=== PATIENT | female | born 1945 | race Caucasian/White ===

== ENCOUNTER 2018-09-21 08:06 | Inpatient (IN) | payer MEDICARE, OTHER | END 2018-09-24 15:10 | disposition home or self-care (01) | LOC: PAS IN 08:06 → ORTHO 4S 14:30 | PROC: 0SR90J9 Replacement of Right Hip Joint with Synthetic Substitute, Cemented, Open Approach (ICD-10-PCS; principal; 2018-09-21 09:43) | DX: M16.11 Unilateral primary osteoarthritis, right hip (principal); I10 Essential (primary) hypertension ==

== ENCOUNTER 2018-10-17 05:13 | Inpatient (IN) | payer MEDICARE, OTHER ==
[~2018-10-17] VITALS: Ht 167.6 cm; Wt 78.1 kg
[~2018-10-17 05:13] MED LIST: ACET-2119 PO; ASPI-1264 PO; CALC-1051 PO; FERR325T32 PO; IBUP-24 PO; LEVO25TA50 PO; LISI10TA4 PO; NORT10CA81 PO; OMEP-84 PO; PREG200C PO; ROSU10TA27 PO; TRAM50TA2 PO
[2018-10-17] MEDS ORDERED: ondansetron/PF 4mg/2ml inj IV ONE (05:45)
[2018-10-17] MEDS ORDERED: normal saline 1000ml 1,000 ML IV ONE (05:50)
[2018-10-17] MEDS ORDERED: morphine 4 MG/ML inj SYRINge IV ONE (05:50)
--- NOTE | 2018-10-17 05:51 | NUR ---
PT S/P HIP REPLACEMENT SURGERY FROM 2 WEEKS AGO. HX FIBROMYALGIA AND TAKES TRAMADOL DAILY , TOOK OXYCODONE FOR POST OP. NOW PRESENTS WITH DECREASED STOOL OUTPUT FROM ILEOSTOMY STARTING ON FRIDAY, ALSO NOTES RLQ PAIN. APPROX 300CC LIQUID STOOL NOTED IN OSTOMY, PT TOOK SENNA AND MIRALAX AT HOME.
[2018-10-17 06:03] LABS: BASOPHILS # (AUTO) 0.1 X10'3 (0-0.2); BASOPHILS % (AUTO) 0.5 % (0-1); EOSINOPHILS # (AUTO) 0.2 X10'3 (0-0.9); EOSINOPHILS % (AUTO) 1.5 % (0-6); HEMATOCRIT 37.7 % (35.0-45.0); HEMOGLOBIN 12.2 g/dl (12.0-16.0); LYMPHOCYTES # (AUTO) 1.3 X10'3 (1.1-4.8); LYMPHOCYTES % (AUTO) 10.9 % (21-51); MEAN CORPUSCULAR HEMOGLOBIN 27.7 PG (27.0-31.0); MEAN CORPUSCULAR HGB CONC 32.4 g/dL (33.0-36.5); MEAN CORPUSCULAR VOLUME 85.5 FL (78-98); MEAN PLATELET VOLUME 8.4 FL (7.4-10.4); MONOCYTES # (AUTO) 0.4 X10'3 (0-0.9); MONOCYTES % (AUTO) 3.8 % (2-12); NEUTROPHILS # (AUTO) 9.7 X10'3 (1.8-7.7); NEUTROPHILS % (AUTO) 83.3 % (42-75); PLATELET COUNT 358 X10'3 (140-440); RED BLOOD COUNT 4.41 X10'6 (4.20-5.60); RED CELL DISTRIBUTION WIDTH 15.9 % (11.5-14.5); WHITE BLOOD COUNT 11.6 X10'3 (4.5-11.0)
[2018-10-17 06:10] LABS: PROTHROMBIN TIME 10.1 SECONDS (9.0-12.0)
[2018-10-17 06:12] LABS: ALANINE AMINOTRANSFERASE 17 U/L (12-78); ALBUMIN 3.5 G/DL (3.4-5.0); ALBUMIN/GLOBULIN RATIO 0.9 (1.1-1.5); ALKALINE PHOSPHATASE 129 IU/L (46-116); ANION GAP 11 (8-16); ASPARTATE AMINO TRANSFERASE 21 U/L (10-37); BILIRUBIN,TOTAL 0.3 MG/DL (0.1-1.0); BLOOD UREA NITROGEN 13 MG/DL (7-18); BUN/CREATININE RATIO 19.1 (6.6-38.0); CALCIUM 9.7 MG/DL (8.5-10.1); CHLORIDE 107 MMOL/L (99-107); CREATININE 0.68 MG/DL (0.40-0.90); GLUCOSE 134 MG/DL (70-104); POTASSIUM 4.1 MMOL/L (3.5-5.1); SODIUM 140 MMOL/L (135-145); TOTAL CARBON DIOXIDE 21.9 MMOL/L (24-32); TOTAL PROTEIN 7.6 G/DL (6.4-8.2); eGFR 85 ML/MIN
--- NOTE | 2018-10-17 06:46 | NUR ---
pt does not know her med list. states she can get it from her pharmacy when they open today. informed her we will need this info once they open today.
[2018-10-17 06:51] LABS: CLARITY,URINE CLEAR (Clear); COLOR,URINE YELLOW (Yellow); GLUCOSE, URINE NEGATIVE (Neg); KETONES,URINE NEGATIVE (Neg); LEUKOCYTE ESTERASE ,URINE NEGATIVE (Neg); NITRITES, URINE NEGATIVE (Neg); OCCULT BLOOD,URINE TRACE-INTACT (Neg); PH,URINE 5.5 (4.8-8.0); PROTEIN,URINE NEGATIVE (Neg); UA COLLECTION TYPE CLN CATCH MIDSTREAM; UROBILINOGEN,URINE 0.2 E.U/dL (0.2-1.0)
[2018-10-17 06:57] LABS: BACTERIA,URINE FEW /HPF (Neg); MUCUS STRANDS MODERATE /LPF (Neg); SQUAMOUS EPITHELIAL CELL,UR MODERATE /LPF (FEW)
--- NOTE | 2018-10-17 07:44 | NUR ---
FAXED MEDICAL RECORDS RELEASE FORM TO [facility]. NOW WAITING FOR PT INFO TO BE FAXED OVER.
[2018-10-17] MEDS ORDERED: magnesium Cl slow-release 64mg tablet PO PRN (07:45)
[2018-10-17] MEDS ORDERED: magnesium 4gm in 100ml NS 100 ML IV PRN (07:45)
[2018-10-17] MEDS ORDERED: potassium Cl 40MEQ/NS 500ml 500 ML IV PRN ×2 (07:45)
[2018-10-17] MEDS ORDERED: magnesium 2GM in 50ml NS 50 ML IV PRN (07:45)
[2018-10-17] MEDS ORDERED: potassium Cl 20 mEq SR tablet PO PRN (07:45)
[2018-10-17] MEDS: K and/or MAG REPLACEMENT MC SCH (08:00)
[2018-10-17] MEDS ORDERED: ASCO500C15 PO (08:02)
[2018-10-17] MEDS: normal saline 1000ml 1,000 ML IV SCH ×2 (08:09→17:57)
[2018-10-17] MEDS: morphine 2 MG/ML inj. syringe IV PRN ×2 (08:15→19:41)
[2018-10-17 08:23] LABS: MAGNESIUM 1.9 MG/DL (1.5-2.4)
[2018-10-17] MEDS ORDERED: morphine 2 MG/ML inj. syringe IV ONE (09:25)
[2018-10-17 10:31] VITALS: BP 152/86
[2018-10-17] MEDS: ondansetron/PF 4mg/2ml inj IV PRN ×2 (11:40→19:00)
[2018-10-17 15:15] VITALS: BP 155/80
--- NOTE | 2018-10-17 17:07 | NUR ---
[facility] documentation: I have reviewed and agree with interventions, assessments performed and documented by MARIMAR Omer. [facility] Medication Administration: For this medication-pass time frame, medication were reviewed, dispensed, administered and documented per hospital policy by MARIMAR Omer.
--- NOTE | 2018-10-17 18:07 | NUR ---
Problems reprioritized. Patient report given, questions answered & plan of care reviewed with MARIMAR PARISH.
--- NOTE | 2018-10-17 18:15 | NUR ---
Patient in room PCU 3026. I have received report from Josefina MINAYA and had the opportunity to ask questions and assume patient care.
[2018-10-17 18:30] VITALS: BP 170/73
[2018-10-17] MEDS: diatr meglu/diatrizoate 30ml oral sol.-(3 dose) bottle PO SCH (21:32)
[2018-10-17 22:30] VITALS: BP 157/78
[2018-10-18] MEDS: ondansetron/PF 4mg/2ml inj IV PRN ×3 (01:11→17:03)
[2018-10-18] MEDS: morphine 2 MG/ML inj. syringe IV PRN ×5 (02:05→22:07)
[2018-10-18 02:35] VITALS: BP 157/79
[2018-10-18] MEDS: normal saline 1000ml 1,000 ML IV SCH ×3 (03:02→23:44)
[2018-10-18 05:42] LABS: BASOPHILS % (AUTO) 0.2 % (0-1); EOSINOPHILS % (AUTO) 0.1 % (0-6); HEMOGLOBIN 12.1 g/dl (12.0-16.0); LYMPHOCYTES # (AUTO) 0.8 X10'3 (1.1-4.8); LYMPHOCYTES % (AUTO) 15.4 % (21-51); MEAN CORPUSCULAR HEMOGLOBIN 27.4 PG (27.0-31.0); MEAN CORPUSCULAR HGB CONC 31.7 g/dL (33.0-36.5); MEAN CORPUSCULAR VOLUME 86.3 FL (78-98); MEAN PLATELET VOLUME 8.7 FL (7.4-10.4); MONOCYTES # (AUTO) 0.5 X10'3 (0-0.9); MONOCYTES % (AUTO) 10.1 % (2-12); NEUTROPHILS # (AUTO) 3.8 X10'3 (1.8-7.7); NEUTROPHILS % (AUTO) 74.2 % (42-75); PLATELET COUNT 316 X10'3 (140-440); RED CELL DISTRIBUTION WIDTH 15.8 % (11.5-14.5); WHITE BLOOD COUNT 5.2 X10'3 (4.5-11.0)
[2018-10-18 05:53] LABS: ALBUMIN 3.1 G/DL (3.4-5.0); ANION GAP 11 (8-16); BLOOD UREA NITROGEN 8 MG/DL (7-18); BUN/CREATININE RATIO 12.5 (6.6-38.0); CALCIUM 9.1 MG/DL (8.5-10.1); CHLORIDE 105 MMOL/L (99-107); CREATININE 0.64 MG/DL (0.40-0.90); GLUCOSE 130 MG/DL (70-104); MAGNESIUM 1.7 MG/DL (1.5-2.4); POTASSIUM 3.3 MMOL/L (3.5-5.1); SODIUM 142 MMOL/L (135-145); TOTAL CARBON DIOXIDE 25.8 MMOL/L (24-32); eGFR > 90 ML/MIN
--- NOTE | 2018-10-18 06:03 | NUR ---
Problems reprioritized. Patient report given, questions answered & plan of care reviewed with Josefina MINAYA.
[2018-10-18 07:00] VITALS: BP 171/96
[2018-10-18] MEDS: diatr meglu/diatrizoate 30ml oral sol.-(3 dose) bottle PO SCH ×2 (07:20→09:54)
[2018-10-18] MEDS: K and/or MAG REPLACEMENT MC SCH (07:21)
[2018-10-18 11:00] VITALS: BP 163/83
--- NOTE | 2018-10-18 14:39 | NUR ---
PAGER ID: [phone] MESSAGE: [id number] Pt. Susanne requests to advance diet, and also alternative pain meds for break through pain. Negra [phone]
[2018-10-18 15:00] VITALS: BP 178/73
--- NOTE | 2018-10-18 15:21 | NUR ---
PAGER ID: [phone] MESSAGE: [id number] Pt. Susanne meds recon has not been done, SBP 173, and spike Temp 100.1, thank you. Negra [phone] Addendum: 10/18/18 at 1625 by Josefina Salinas RN Dr. Wade called back and said she will take care of the med rec.
[2018-10-18] MEDS ORDERED: non-formulary drug (Omeprazole* (Prilosec*) 20 MG) PO PRN (17:10)
[2018-10-18] MEDS ORDERED: pantoprazole 40mg Tablet.DR PO PRN (17:25)
[2018-10-18] MEDS: aspirin 325mg tablet PO SCH (17:30)
[2018-10-18 19:00] VITALS: BP 160/77
[2018-10-18] MEDS ORDERED: non-formulary drug (Calcium Carbonate/Vitamin D3 (Calcium 500 + D Tablet) 1 TAB) PO SCH (20:00)
[2018-10-18] MEDS: calcium carbonate/vitamin D3 tablet PO SCH (20:00)
--- NOTE | 2018-10-18 20:01 | NUR ---
Per Dr. Pierce, okay to give patient's PO meds.
[2018-10-18] MEDS: metoclopramide 5 mg/ml inj IV PRN (20:35)
[2018-10-18] MEDS: pregabalin 25mg capsule PO SCH (20:35)
[2018-10-18] MEDS: lisinopril 10 MG tablet PO SCH (20:39)
[2018-10-18] MEDS: atorvastatin 20mg tablet PO SCH (20:39)
[2018-10-18] MEDS: nortriptyline 10mg capsule PO SCH (20:40)
[2018-10-18] MEDS: levoTHYROXINE 25mcg tablet PO SCH (20:40)
[2018-10-18] MEDS ORDERED: PREGABALIN 200 MG PO SCH (21:00)
[2018-10-18] MEDS ORDERED: ROSUVASTATIN CALCIUM 10 MG PO SCH (21:00)
[2018-10-18 22:13] VITALS: BP 145/85
[2018-10-19] MEDS: morphine 2 MG/ML inj. syringe IV PRN ×4 (02:44→21:25)
[2018-10-19] MEDS: metoclopramide 5 mg/ml inj IV PRN ×4 (02:44→21:25)
[2018-10-19 03:00] VITALS: BP 168/80
[2018-10-19] MEDS: normal saline 1000ml 1,000 ML IV SCH ×2 (05:27→15:07)
[2018-10-19 06:00] VITALS: BP 150/88
[2018-10-19 06:04] LABS: BASOPHILS % (AUTO) 0.2 % (0-1); EOSINOPHILS % (AUTO) 0.1 % (0-6); HEMATOCRIT 37.8 % (35.0-45.0); HEMOGLOBIN 12.1 g/dl (12.0-16.0); LYMPHOCYTES % (AUTO) 15.6 % (21-51); MEAN CORPUSCULAR HEMOGLOBIN 27.7 PG (27.0-31.0); MEAN CORPUSCULAR HGB CONC 32.1 g/dL (33.0-36.5); MEAN PLATELET VOLUME 8.4 FL (7.4-10.4); MONOCYTES % (AUTO) 15.5 % (2-12); NEUTROPHILS # (AUTO) 4.2 X10'3 (1.8-7.7); NEUTROPHILS % (AUTO) 68.6 % (42-75); PLATELET COUNT 325 X10'3 (140-440); RED BLOOD COUNT 4.39 X10'6 (4.20-5.60); RED CELL DISTRIBUTION WIDTH 16.1 % (11.5-14.5); WHITE BLOOD COUNT 6.2 X10'3 (4.5-11.0)
[2018-10-19 06:18] LABS: ALBUMIN 3.1 G/DL (3.4-5.0); ANION GAP 10 (8-16); BLOOD UREA NITROGEN 13 MG/DL (7-18); BUN/CREATININE RATIO 18.8 (6.6-38.0); CALCIUM 9.5 MG/DL (8.5-10.1); CHLORIDE 105 MMOL/L (99-107); CREATININE 0.69 MG/DL (0.40-0.90); GLUCOSE 115 MG/DL (70-104); MAGNESIUM 1.7 MG/DL (1.5-2.4); POTASSIUM 3.3 MMOL/L (3.5-5.1); SODIUM 141 MMOL/L (135-145); TOTAL CARBON DIOXIDE 25.7 MMOL/L (24-32); eGFR 83 ML/MIN
--- NOTE | 2018-10-19 06:30 | NUR ---
Patient in room PCU 3026. I have received report from MARIMAR Rocha and had the opportunity to ask questions and assume patient care.
--- NOTE | 2018-10-19 06:34 | NUR ---
Problems reprioritized. Patient report given, questions answered & plan of care reviewed with MARIMAR Burnett.
[2018-10-19] MEDS: K and/or MAG REPLACEMENT MC SCH (08:00)
[2018-10-19 08:02] LABS: NUCLEATED RED BLOOD CELLS 3 /100WBC (0-0); PLATELET ESTIMATE NORMAL; TOTAL CELLS COUNTED 100
[2018-10-19 08:03] LABS: ANISOCYTOSIS 1+
[2018-10-19] MEDS: calcium carbonate/vitamin D3 tablet PO SCH ×2 (08:37→20:00)
[2018-10-19] MEDS: aspirin 325mg tablet PO SCH ×2 (08:37→17:44)
[2018-10-19] MEDS: ferrous sulfate 325mg tablet PO SCH (08:37)
[2018-10-19] MEDS: potassium Cl 20 mEq SR tablet PO PRN ×3 (08:54→18:57)
[2018-10-19 11:00] VITALS: BP 145/77
[2018-10-19 15:00] VITALS: BP 122/83
--- NOTE | 2018-10-19 18:24 | NUR ---
Patient in room PCU 3022W. I have received report from MARIMAR Acevedo and had the opportunity to ask questions and assume patient care. Patient awake for bedside report. NS infusing at 100 mL/hr and is stable at this time. Will continue to monitor closely.
--- NOTE | 2018-10-19 18:42 | NUR ---
Problems reprioritized. Patient report given, questions answered & plan of care reviewed with MARIMAR Gold.
--- NOTE | 2018-10-19 18:55 | NUR ---
TRANSFERRED PATIENT TO SURGICAL ROOM 355A. REPORT GIVEN TO MARIMAR RICHEY.
--- NOTE | 2018-10-19 19:07 | NUR ---
Patient in room U 3026. I have received report from MARIMAR Gold and had the opportunity to ask questions and assume patient care. Addendum: 10/19/18 at 1908 by Desi Weiss RN Amended: Links added.
[2018-10-19 19:30] VITALS: BP 179/65
--- NOTE | 2018-10-19 19:31 | NUR ---
pt. just transferred from [facility] via wheelchair brought by MARIMAR Gold. Addendum: 10/19/18 at 1931 by Desi Weiss RN Amended: Links added.
[2018-10-19] MEDS: levoTHYROXINE 25mcg tablet PO SCH (20:45)
[2018-10-19] MEDS: atorvastatin 20mg tablet PO SCH (20:45)
[2018-10-19] MEDS: lisinopril 10 MG tablet PO SCH (20:46)
[2018-10-19] MEDS: nortriptyline 10mg capsule PO SCH (20:46)
[2018-10-19] MEDS: pregabalin 25mg capsule PO SCH (21:00)
[2018-10-19] MEDS: ondansetron/PF 4mg/2ml inj IV PRN (21:31)
[2018-10-19 23:46] VITALS: BP 168/80
[2018-10-20] MEDS: metoclopramide 5 mg/ml inj IV PRN ×4 (03:42→22:52)
[2018-10-20] MEDS: morphine 2 MG/ML inj. syringe IV PRN ×4 (03:44→21:00)
[2018-10-20 05:07] LABS: BASOPHILS % (AUTO) 0.2 % (0-1); EOSINOPHILS # (AUTO) 0.1 X10'3 (0-0.9); EOSINOPHILS % (AUTO) 1.3 % (0-6); HEMATOCRIT 36.9 % (35.0-45.0); HEMOGLOBIN 12.1 g/dl (12.0-16.0); LYMPHOCYTES % (AUTO) 19.3 % (21-51); MEAN CORPUSCULAR HEMOGLOBIN 27.7 PG (27.0-31.0); MEAN CORPUSCULAR HGB CONC 32.7 g/dL (33.0-36.5); MEAN CORPUSCULAR VOLUME 84.6 FL (78-98); MEAN PLATELET VOLUME 8.3 FL (7.4-10.4); MONOCYTES # (AUTO) 0.8 X10'3 (0-0.9); NEUTROPHILS # (AUTO) 3.1 X10'3 (1.8-7.7); NEUTROPHILS % (AUTO) 62.2 % (42-75); PLATELET COUNT 268 X10'3 (140-440); RED BLOOD COUNT 4.36 X10'6 (4.20-5.60); RED CELL DISTRIBUTION WIDTH 16.2 % (11.5-14.5); WHITE BLOOD COUNT 4.9 X10'3 (4.5-11.0)
[2018-10-20 05:26] LABS: ANION GAP 9 (8-16); BLOOD UREA NITROGEN 18 MG/DL (7-18); BUN/CREATININE RATIO 25.4 (6.6-38.0); CALCIUM 9.3 MG/DL (8.5-10.1); CHLORIDE 105 MMOL/L (99-107); CREATININE 0.71 MG/DL (0.40-0.90); GLUCOSE 109 MG/DL (70-104); MAGNESIUM 1.7 MG/DL (1.5-2.4); POTASSIUM 3.6 MMOL/L (3.5-5.1); SODIUM 141 MMOL/L (135-145); TOTAL CARBON DIOXIDE 27.2 MMOL/L (24-32); eGFR 80 ML/MIN
--- NOTE | 2018-10-20 06:17 | NUR ---
Problems reprioritized. Patient report given, questions answered & plan of care reviewed with MARIMAR Tavarez. Addendum: 10/20/18 at 0618 by Desi Weiss RN Amended: Links added.
--- NOTE | 2018-10-20 06:51 | NUR ---
Patient in room MAURICE 355. I have received report from Desi MINAYA and had the opportunity to ask questions and assume patient care.
[2018-10-20] MEDS: K and/or MAG REPLACEMENT MC SCH (07:16)
[2018-10-20] MEDS: ferrous sulfate 325mg tablet PO SCH (07:16)
[2018-10-20] MEDS: aspirin 325mg tablet PO SCH ×2 (07:16→17:24)
[2018-10-20] MEDS: calcium carbonate/vitamin D3 tablet PO SCH ×3 (07:16→21:03)
[2018-10-20] MEDS: normal saline 1000ml 1,000 ML IV SCH ×2 (07:20→15:59)
[2018-10-20 07:29] VITALS: BP 132/80
[2018-10-20 11:44] VITALS: BP 142/76
[2018-10-20 18:00] VITALS: BP 162/83
--- NOTE | 2018-10-20 18:09 | NUR ---
Problems reprioritized. Patient report given, questions answered & plan of care reviewed with Napoleon MINAYA.
--- NOTE | 2018-10-20 18:10 | NUR ---
Patient in room [facility] 355. I have received report from MARIMAR Tavarez and had the opportunity to ask questions and assume patient care.
--- NOTE | 2018-10-20 18:34 | NUR ---
Student documentation: I have reviewed and agree with all interventions, assessments performed and documented by Jhony Student Nurse. Student Medication Administration: For this medication-pass time frame, all medication were reviewed, dispensed, administered and documented per hospital policy by Jhony Ramos Nurse.
[2018-10-20] MEDS: ondansetron/PF 4mg/2ml inj IV PRN (21:00)
[2018-10-20] MEDS: nortriptyline 10mg capsule PO SCH (21:02)
[2018-10-20] MEDS: atorvastatin 20mg tablet PO SCH (21:03)
[2018-10-20] MEDS: levoTHYROXINE 25mcg tablet PO SCH (21:03)
[2018-10-20] MEDS: lisinopril 10 MG tablet PO SCH (21:03)
[2018-10-20] MEDS: pregabalin 25mg capsule PO SCH (21:03)
[2018-10-21] VITALS: BP 169/81
[2018-10-21 00:30] VITALS: BP 150/82
[2018-10-21] MEDS: proCHLORperazine 10 MG/2 ml inj IV PRN ×3 (01:37→20:12)
[2018-10-21] MEDS: HYDROmorphone 1 mg/ml syringe IV PRN ×4 (01:38→20:28)
[2018-10-21] MEDS: normal saline 1000ml 1,000 ML IV SCH ×2 (01:42→10:51)
[2018-10-21 05:51] LABS: BASOPHILS % (AUTO) 0.2 % (0-1); EOSINOPHILS # (AUTO) 0.1 X10'3 (0-0.9); EOSINOPHILS % (AUTO) 1.7 % (0-6); HEMATOCRIT 37.6 % (35.0-45.0); LYMPHOCYTES % (AUTO) 14.9 % (21-51); MEAN CORPUSCULAR HEMOGLOBIN 27.6 PG (27.0-31.0); MEAN CORPUSCULAR VOLUME 86.3 FL (78-98); MEAN PLATELET VOLUME 8.9 FL (7.4-10.4); MONOCYTES # (AUTO) 1.4 X10'3 (0-0.9); MONOCYTES % (AUTO) 22.2 % (2-12); NEUTROPHILS # (AUTO) 3.9 X10'3 (1.8-7.7); PLATELET COUNT 285 X10'3 (140-440); RED BLOOD COUNT 4.35 X10'6 (4.20-5.60); RED CELL DISTRIBUTION WIDTH 15.6 % (11.5-14.5); WHITE BLOOD COUNT 6.5 X10'3 (4.5-11.0)
[2018-10-21 06:03] LABS: ANION GAP 11 (8-16); BLOOD UREA NITROGEN 17 MG/DL (7-18); CHLORIDE 103 MMOL/L (99-107); CREATININE 0.81 MG/DL (0.40-0.90); GLUCOSE 104 MG/DL (70-104); MAGNESIUM 1.8 MG/DL (1.5-2.4); POTASSIUM 3.2 MMOL/L (3.5-5.1); SODIUM 140 MMOL/L (135-145); TOTAL CARBON DIOXIDE 25.9 MMOL/L (24-32); eGFR 69 ML/MIN
--- NOTE | 2018-10-21 06:38 | NUR ---
Problems reprioritized. Patient report given, questions answered & plan of care reviewed with MARIMAR Tavarez.
--- NOTE | 2018-10-21 07:10 | NUR ---
Patient in room [facility]UR[facility] 355. I have received report from Napoleon MINAYA and had the opportunity to ask questions and assume patient care.
[2018-10-21 07:12] LABS: TOTAL CELLS COUNTED 100
[2018-10-21 07:13] LABS: PLATELET ESTIMATE NORMAL
[2018-10-21 07:45] VITALS: BP 138/75
[2018-10-21] MEDS: calcium carbonate/vitamin D3 tablet PO SCH ×2 (08:00→20:00)
[2018-10-21] MEDS: K and/or MAG REPLACEMENT MC SCH (08:00)
[2018-10-21] MEDS: aspirin 325mg tablet PO SCH ×2 (08:04→17:30)
[2018-10-21] MEDS: ferrous sulfate 325mg tablet PO SCH (08:04)
[2018-10-21 11:09] VITALS: BP 156/66
[2018-10-21] MEDS ORDERED: potassium Cl 20 mEq SR tablet PO PRN ×2 (11:25)
[2018-10-21] MEDS ORDERED: potassium Cl 40MEQ/NS 500ml 500 ML IV PRN ×2 (11:25)
[2018-10-21] MEDS: metoclopramide 5 mg/ml inj IV PRN (15:17)
[2018-10-21 19:00] VITALS: BP 118/62
--- NOTE | 2018-10-21 19:13 | NUR ---
Problems reprioritized. Patient report given, questions answered & plan of care reviewed with Napoleon MINAYA.
--- NOTE | 2018-10-21 19:15 | NUR ---
Patient in room [facility] 355. I have received report from MARIMAR Tavarez and had the opportunity to ask questions and assume patient care.
[2018-10-21] MEDS: levoTHYROXINE 25mcg tablet PO SCH (20:14)
[2018-10-21] MEDS: atorvastatin 20mg tablet PO SCH (20:14)
[2018-10-21] MEDS: lisinopril 10 MG tablet PO SCH (20:14)
[2018-10-21] MEDS: nortriptyline 10mg capsule PO SCH (20:14)
[2018-10-21] MEDS: pregabalin 25mg capsule PO SCH (20:15)
--- NOTE | 2018-10-21 23:00 | NUR ---
Patient complaining of increasing abdominal pain and "bladder pressure." I helped pt to BSC, and she promptly slumped over, unable to move arms and head. Pt still responding verbally, but getting slower. Rapid response called. Pt was put back in bed where the MD said she had a vaso vagal effect. He ordered a 1000ml NS bolus, and increased her fluids. Pt's BP came up to 110/65 as the bolus was going. pt became more responsive, still complaining of abdominal pain. MD was asked about giving pt dilaudid at this time, and he ok'd it. Dilaudid given.
[2018-10-21 23:30] VITALS: BP 110/65
[2018-10-22 00:15] VITALS: BP 110/65
[2018-10-22 00:20] VITALS: BP 141/70
[2018-10-22 00:21] LABS: BASOPHILS % (AUTO) 0.1 % (0-1); EOSINOPHILS % (AUTO) 0 % (0-6); HEMOGLOBIN 15.2 g/dl (12.0-16.0); LYMPHOCYTES # (AUTO) 0.8 X10'3 (1.1-4.8); LYMPHOCYTES % (AUTO) 8.9 % (21-51); MEAN CORPUSCULAR HGB CONC 31.6 g/dL (33.0-36.5); MEAN CORPUSCULAR VOLUME 88.6 FL (78-98); MONOCYTES % (AUTO) 12.1 % (2-12); NEUTROPHILS # (AUTO) 6.7 X10'3 (1.8-7.7); NEUTROPHILS % (AUTO) 78.9 % (42-75); PLATELET COUNT 277 X10'3 (140-440); RED BLOOD COUNT 5.42 X10'6 (4.20-5.60); RED CELL DISTRIBUTION WIDTH 16.7 % (11.5-14.5); WHITE BLOOD COUNT 8.5 X10'3 (4.5-11.0)
[2018-10-22 00:25] VITALS: BP 110/80
[2018-10-22 00:39] LABS: ALANINE AMINOTRANSFERASE 14 U/L (12-78); ALBUMIN 3.5 G/DL (3.4-5.0); ALBUMIN/GLOBULIN RATIO 0.8 (1.1-1.5); ALKALINE PHOSPHATASE 124 IU/L (46-116); ANION GAP 19 (8-16); ASPARTATE AMINO TRANSFERASE 13 U/L (10-37); BILIRUBIN,TOTAL 0.6 MG/DL (0.1-1.0); BLOOD UREA NITROGEN 28 MG/DL (7-18); BUN/CREATININE RATIO 15.3 (6.6-38.0); CALCIUM 9.8 MG/DL (8.5-10.1); CHLORIDE 100 MMOL/L (99-107); CREATININE 1.83 MG/DL (0.40-0.90); GLUCOSE 203 MG/DL (70-104); MAGNESIUM 2.1 MG/DL (1.5-2.4); POTASSIUM 4.1 MMOL/L (3.5-5.1); SODIUM 140 MMOL/L (135-145); TOTAL CARBON DIOXIDE 20.9 MMOL/L (24-32); eGFR 27 ML/MIN
[2018-10-22] MEDS: HYDROmorphone 1 mg/ml syringe IV PRN (00:46)
[2018-10-22] MEDS ORDERED: normal saline 1000ml 1,000 ML IV ONE (01:05)
[2018-10-22] MEDS ORDERED: normal saline 1000ml 1,000 ML IV SCH (01:10)
[2018-10-22 01:25] VITALS: BP 109/71
--- NOTE | 2018-10-22 01:45 | NUR ---
Patient starting to vomit brown liquid, still complaining of abdominal pain. KUB ordered, unable to take it because patient is vomiting too much. Suction placed in room, rapid response called. Pt stopped breathing during rapid response.
--- NOTE | 2018-10-22 02:41 | NUR ---
Rapid response called for patient. She did not recover. Pts notified that pt had .
--- NOTE | 2018-10-22 05:29 | NUR ---
home came and took body. All belongings home with family.
== END 2018-10-22 02:41 | disposition expired | DRG 394 ==
LOC: ER 05:13 → ED HOLD 09:46 → PCU 3S 09:54 → SUR 3N 10-19 19:19
PROVIDERS: ADMIT Internal Medicine; ATTEND Family Medicine
DX: K43.3 Parastomal hernia with obstruction, without gangrene (principal); K56.7 Ileus, unspecified; I10 Essential (primary) hypertension; E78.00 Pure hypercholesterolemia, unspecified; E87.6 Hypokalemia; E78.5 Hyperlipidemia, unspecified; E03.9 Hypothyroidism, unspecified; D72.829 Elevated white blood cell count, unspecified; G89.29 Other chronic pain; M79.7 Fibromyalgia; G62.9 Polyneuropathy, unspecified; R55 Syncope and collapse; R09.02 Hypoxemia; Z66 Do not resuscitate; Z90.49 Acquired absence of other specified parts of digestive tract; Z93.2 Ileostomy status; Z79.899 Other long term (current) drug therapy; Z79.82 Long term (current) use of aspirin; Z87.11 Personal history of peptic ulcer disease
CPT/HCPCS: 36415; 74176; 80048; 80053; 81001; 82948; 83605; 83735; 84145; 85025; 85610; 87070; 87088; 93005; 96374; 96375; 96376; 99285; G0378; J0780; J1170; J2270; J2405; J2765; J3480; J7030; Q9963